=== PATIENT | female | born 1965 | race African-American/Black ===

== ENCOUNTER 2020-02-08 09:00 | Outpatient (CLI) | payer OTHER, SELFPAY ==
--- NOTE | ~2020-02-08 | MM_ITS ---
EXAMINATION: MM screening todd BI w molina HISTORY: Screening mammogram TECHNIQUE: Craniocaudal and mediolateral oblique 3-D tomosynthesis images were obtained and synthetic 2-D images were generated. CAD analysis was submitted and interpreted. COMPARISON: 01/20/2019, 12/28/2017, 09/06/2016 bilateral digital screening mammogram examinations BREAST PARENCHYMAL COMPOSITION: There are scattered areas of fibroglandular density.................. ........ FINDINGS: There is no evidence of suspicious mass, calcification, or architectural distortion to sugg est malignancy in either breast. There has been no suspicious interval change. IMPRESSION: 1. No mammographic evidence of malignancy. 2. Recommend routine screening mammography in one year. BI-RADS Category 1: Negative Reviewed, dictated and finalized at location A.
== END 2020-02-08 09:01 | disposition home or self-care (01) ==
PROVIDERS: PCP Family Medicine; Visit Provider Obstetrics & Gynecology
DX: Z12.31 Encounter for screening mammogram for malignant neoplasm of breast (principal)
CPT/HCPCS: 77063; 77067

== ENCOUNTER 2021-05-10 14:09 | Outpatient (CLI) | payer OTHER, SELFPAY ==
--- NOTE | ~2021-05-10 | DEXA_ITS ---
Bone Density Report Name: Chayito Howard Age: 56 Sex: Female Ethnicity: Black Date of : 1965 Indication: osteopenia; monitoring treatment; height loss; postmenopausal Referring Provider: HUSSAIN, TUAN Study: Bone densitometry was performed. Exam Date: May 10, 2021 Accession number: [id number] Bone Density: Region BMD T-score Z-score Classification AP Spine (L1-L4) 0.816 -2.1 -1.6 Osteopenia Femoral Neck (Left) 0.703 -1.3 -0.8 Osteopenia Total Hip (Left) 0.851 -0.7 -0.5 Normal Total Hip Bilateral Avg 0.850 -0.8 -0.5 Normal Femoral Neck (Right) 0.721 -1.2 -0.7 Osteopenia Total Hip (Right) 0.847 -0.8 -0.5 Normal World Health Organization criteria for BMD impression classify patients as: Normal (T-score at or above -1.0), Osteopenia (T-score between -1.0 and -2.5), or Osteoporosis (T-score at or below -2.5). 10-year Fracture Risk: FRAX not reported because: Treated for osteoporosis Previous Exams: Region Exam Age BMD T-score BMD Change BMD Change Date g/cm2 vs Baseline vs Previous AP Spine(L1-L4) 05/10/2021 56 0.816 -2.1 -0.029(-3.4%)* -0.029(-3.4%)* 10/28/2018 53 0.845 -1.8 Total Hip(Left) 05/10/2021 56 0.851 -0.7 -0.069(-7.5%)* -0.069(-7.5%)* 10/28/2018 53 0.921 -0.2 Total Hip(Right) 05/10/2021 56 0.847 -0.8 -0.058(-6.4%)* -0.058(-6.4%)* 10/28/2018 53 0.905 -0.3 *Denotes significance at 95% confidence level, LSC for AP Spine = 0.022 g/cm2, LSC for Total Hip = 0.027 g/cm2 Clinical Information Provided by Patient: Is being treated for osteoporosis Has used the following medications: Vitamin D, Calcium Patient maximum height was 67 Menopause Age: 50 Does not regularly consume dairy products Onset of menses at age 12 Number of children 1 Impression: The patient has low bone mass, based on the Total Spine T-score. The BMD for the AP Spine(L1-L4) decreased, changing by -3.4% since the last DXA exam. The BMD for the Total Hip(Left) decreased, changing by -7.5% since the last DXA exam. The BMD for the Total Hip(Right) decreased, changing by -6.4% since the last DXA exam. Discussion: SIGNIFICANT BONE LOSS OBSERVED. Adherence to therapy (including calcium and vitamin D intake) should be assessed. If compliance is not a factor, review management and exclusion of secondary causes of bone loss. It is important to ask patients whether they are taking their medications and to encourage continued and appropriate compliance with their osteopo
--- NOTE | ~2021-05-10 | MM_ITS ---
EXAMINATION: MM screening todd BI w molina HISTORY: Screening TECHNIQUE: Craniocaudal and mediolateral oblique 3-D tomosynthesis images were obtained and synthetic 2-D images were generated. CAD analysis was submitted and interpreted. COMPARISON: Comparison to multiple prior studies sequentially, with oldest reviewed study dated 05/05. BREAST PARENCHYMAL COMPOSITION: There are scattered areas of fibroglandular density. FINDINGS: There is no evidence of suspicious mass, calcification, or architectural distortion to sugg est malignancy in either breast. There has been no suspicious interval change. IMPRESSION: 1. No mammographic evidence of malignancy. 2. Recommend routine screening mammography in one year. BI-RADS Category 1: Negative Reviewed, dictated and finalized at location A.
== END 2021-05-10 14:10 | disposition home or self-care (01) ==
PROVIDERS: PCP Family Medicine; Visit Provider Nurse Practitioner
DX: Z12.31 Encounter for screening mammogram for malignant neoplasm of breast (principal); Z78.0 Asymptomatic menopausal state; M85.88 Other specified disorders of bone density and structure, other site; M85.852 Other specified disorders of bone density and structure, left thigh; M85.851 Other specified disorders of bone density and structure, right thigh
CPT/HCPCS: 77063; 77067; 77080

== ENCOUNTER 2022-06-17 08:47 | Outpatient (CLI) | payer OTHER, SELFPAY ==
--- NOTE | ~2022-06-17 | MM_ITS ---
EXAMINATION: MM screening [facility] BI w molina HISTORY: Screening mammogram TECHNIQUE: Craniocaudal and mediolateral oblique 3-D tomosynthesis images were obtained and synthetic 2-D images were generated. CAD analysis was submitted and interpreted. COMPARISON: 05/10/2021, 02/08/2020, 01/20/2019 BREAST PARENCHYMAL COMPOSITION: There are scattered areas of fibroglandular density. FINDINGS: There is no suspicious mass, calcification, or architectural distortion to suggest malignan cy in either breast. There has been no suspicious interval change. IMPRESSION: 1. No mammographic evidence of malignancy. 2. Recommend routine screening mammography in one year. BI-RADS Category 1: Negative Reviewed, dictated and finalized at location A.
== END 2022-06-17 08:48 | disposition home or self-care (01) ==
PROVIDERS: PCP Family Medicine; Visit Provider Nurse Practitioner
DX: Z12.31 Encounter for screening mammogram for malignant neoplasm of breast (principal)
CPT/HCPCS: 77063; 77067

== ENCOUNTER 2023-04-17 08:38 | Outpatient (CLI) | payer OTHER, SELFPAY ==
--- NOTE | ~2023-04-17 | MR_ITS ---
MRI of the brain Clinical History: Migraine headache Technique: Axial and sagittal T1-weighted images were acquired. These were followed by axial T2-weigh daniel, diffusion weighted, gradient, and FLAIR images. Findings: No abnormal signal seen in the brain parenchyma. No acute infarct, internal hemorrhage, or mass lesion. Ventricles and subarachnoid spaces are unremarkable. Orbits are unremarkable. Paranasal sinuses and m astoid air cells are clear. Major intracranial flow voids are intact. Sagittal midline structures are intact. IMPRESSION: Unremarkable exam. Reviewed, dictated and finalized at location M. IMPRESSION: Unremarkable exam.
== END 2023-04-17 08:39 | disposition home or self-care (01) ==
PROVIDERS: PCP Family Medicine; Visit Provider Psychiatry & Neurology Neurology
DX: G43.909 Migraine, unspecified, not intractable, without status migrainosus (principal)
CPT/HCPCS: 70551

== ENCOUNTER → 2023-07-14 10:16 | Outpatient (CLI) | payer OTHER, SELFPAY ==
--- NOTE | ~2023-07-14 | DEXA_ITS ---
Bone Density Report Name: PETRA MONSALVE Age: 58 Sex: Female Ethnicity: Black Date of : 1965 Indication: postmenopausal; screening for osteoporosis; height loss; Referring Provider: BETHANIE HOWARD Study: Bone densitometry was performed. Exam Date: July 14, 2023 Accession number: [id number] Bone Density: Region BMD T-score Z-score Classification AP Spine (L1-L4) 0.767 -2.5 -1.9 Osteoporosis Femoral Neck (Left) 0.672 -1.6 -0.9 Osteopenia Total Hip (Left) 0.828 -0.9 -0.5 Normal Femoral Neck (Right) 0.683 -1.5 -0.8 Osteopenia Total Hip (Right) 0.798 -1.2 -0.7 Osteopenia Total Hip Mean 0.813 -1.1 -0.6 Osteopenia World Health Organization criteria for BMD impression classify patients as: Normal (T-score at or above -1.0), Osteopenia (T-score between -1.0 and -2.5), or Osteoporosis (T-score at or below -2.5). 10-year Fracture Risk: FRAX not reported because: Some T-score for Spine Total or Hip Total or Femoral Neck at or below -2.5 Clinical Information Provided by Patient: Has used the following medications: Vitamin D, Calcium Patient maximum height was 67 Menopause Age: 48 Onset of menses at age 12 Number of children 1 Impression: The patient has osteoporosis, based on the Total Spine T-score. Discussion: INCREASED RISK OF FRACTURE. BONE DENSITY IS UNDESIRABLY LOW AT ONE OR MORE SKELETAL SITES, CONSISTENT WITH POSTMENOPAUSAL OSTEOPOROSIS. This patient's lowest T-score meets the World Health Organization's (WHO) criteria for osteoporosis at one or more sites (T-score -2.5 or below). In untreated patients, the risk of osteoporotic fracture increases approximately two-fold for each 1.0 SD decrease in T-score. Low bone density is not the only risk factor for fracture; also consider factors such as patient's age, frailty or poor health, risk of falling, risk of injury, previous osteoporotic fracture, family history of osteoporosis, cigarette smoking, low body weight, etc. Not everyone with low bone mineral density has osteoporosis; osteomalacia and other metabolic bone disorders should also be considered. Patients who have osteoporosis should be evaluated for specific diseases and conditions (secondary causes) that may cause or contribute to bone loss. The [place] [employer] Endocrinologists (AACE) and National Osteoporosis Foundation (NOF) recommend pharmacologic intervention for all postmenopausal women whose T-score is in this range. The patient should follow a healthful lifestyle (good nutrition with adequate calcium and vitamin D, and appropriate weight-bearing exercise). Follow-Up: Consider a repeat BMD and Vertebral Fracture Assessment (VFA) exam in 2 years or sooner if medically necessary, to reassess this patient's status. Reported by: LAZARA on 07/14/2023 10:32:00 AM. ____
== END ==
PROVIDERS: PCP Family Medicine; Visit Provider Obstetrics & Gynecology Gynecology
DX: M85.88 Other specified disorders of bone density and structure, other site (principal); Z78.0 Asymptomatic menopausal state; M85.852 Other specified disorders of bone density and structure, left thigh; M85.851 Other specified disorders of bone density and structure, right thigh; M81.0 Age-related osteoporosis without current pathological fracture
CPT/HCPCS: 77080

== ENCOUNTER → 2023-08-06 09:57 | Outpatient (CLI) | payer OTHER, SELFPAY ==
--- NOTE | ~2023-08-06 | MM_ITS ---
EXAMINATION: MM screening [facility] BI w molina HISTORY: Screening TECHNIQUE: Craniocaudal and mediolateral oblique 3-D tomosynthesis images were obtained and synthetic 2-D images were generated. CAD analysis was submitted and interpreted. COMPARISON: Comparison to multiple prior studies sequentially, with oldest reviewed study dated 08/19. BREAST PARENCHYMAL COMPOSITION: Breast composed of scattered areas of fibroglandular density FINDINGS: There is no evidence of suspicious mass, calcification, or architectural distortion to sugg est malignancy in either breast. There has been no suspicious interval change. IMPRESSION: 1. No mammographic evidence of malignancy. 2. Recommend routine screening mammography in one year. BI-RADS Category 1: Negative Reviewed, dictated and finalized at location A.
== END ==
PROVIDERS: PCP Obstetrics & Gynecology Gynecology; Visit Provider Obstetrics & Gynecology Gynecology
DX: Z12.31 Encounter for screening mammogram for malignant neoplasm of breast (principal)
CPT/HCPCS: 77063; 77067

== ENCOUNTER 2025-05-02 13:34 | Outpatient (CLI) | payer OTHER, SELFPAY ==
--- NOTE | ~2025-05-02 | MR_ITS ---
EXAMINATION: MR knee LT wo con DATE: 05/02/2025 14:10 INDICATION: Other tear of medial meniscus, current injury TECHNIQUE: Magnetic resonance imaging (MRI) of the left knee was performed without intravenous contra st. Sequences included axial PD-weighted FS FSE, coronal PD-weighted FSE and PD-weighted FS FSE, sagi ttal PD-weighted FSE, and sagittal T2-weighted FS FSE. COMPARISON: X-ray left knee 04/20/2025, images only FINDINGS: Medial compartment: Moderate diffuse cartilage thinning. Mild osteophytosis. Small oblique undersurface tear of the body of medial meniscus. Apical blunting of the anterior horn and posterior horn. Vertical tear of the pos terior horn, extending to the undersurface. Lateral compartment: Mild diffuse cartilage thinning. Mild osteophytosis. Small meniscal cyst noted anteriorly, with irreg ularity along the superior surface of the anterior horn. Patellofemoral compartment: Mild diffuse cartilage thinning with multifocal areas of partial thickness cartilage signal abnormali ty. Retinacula intact. Ligaments and tendons: The ACL, PCL, MCL, and LCL are intact. Remaining flexor and extensor tendons are intact. Abnormal sof t tissue signal surrounding the sartorius, gracilis, and semitendinosus tendons at the level of the j oint line. Fluid: Small volume joint fluid. Osseous/other: No suspicious focal or diffuse marrow signal. Degenerative subcortical cyst in the anterior tibial pl [place]. IMPRESSION: Multiple small tears of the medial meniscus. Likely small anterior horn tear of the lateral meniscus, with a meniscal cyst. Tricompartmental osteoarthritis. Small joint effusion. Abnormal signal adjacent to the sartorius, gracilis, semitendinosus tendons at the level of the joint line, likely representing mild inflammation. No definite tenosynovitis or tendon tear. Reviewed, dictated and finalized at location K.
== END 2025-05-02 13:35 | disposition home or self-care (01) ==
PROVIDERS: PCP Orthopaedic Surgery; Visit Provider Orthopaedic Surgery
DX: S83.242A Other tear of medial meniscus, current injury, left knee, initial encounter (principal); M17.12 Unilateral primary osteoarthritis, left knee; M25.462 Effusion, left knee; M23.042 Cystic meniscus, anterior horn of lateral meniscus, left knee; X58.XXXA Exposure to other specified factors, initial encounter
CPT/HCPCS: 73721

== ENCOUNTER 2025-09-01 14:30 | Outpatient (CLI) | payer OTHER, SELFPAY ==
--- NOTE | ~2025-09-01 | DEXA_ITS ---
Bone Density Report Name: PETRA MONSALVE Age: 60 Sex: Female Ethnicity: Black Date of : 1965 Indication: postmenopausal osteoporosis; height loss; Referring Provider: ORLIN, KELLI Study: Bone densitometry was performed. Exam Date: September 01, 2025 Accession number: [id number] Bone Density: Region BMD T-score Z-score Classification AP Spine(L1-L4) 0.763 -2.6 -1.8 Osteoporosis Femoral Neck (Left) 0.661 -1.7 -0.9 Osteopenia Total Hip (Left) 0.786 -1.3 -0.7 Osteopenia Femoral Neck (Right) 0.682 -1.5 -0.7 Osteopenia Total Hip (Right) 0.773 -1.4 -0.8 Osteopenia Total Hip Mean 0.780 -1.4 -0.8 Osteopenia World Health Organization criteria for BMD impression classify patients as: Normal (T-score at or above -1.0), Osteopenia (T-score between -1.0 and -2.5), or Osteoporosis (T-score at or below -2.5). 10-year Fracture Risk: FRAX not reported because: Some T-score for Spine Total or Hip Total or Femoral Neck at or below -2.5 Previous Exams: -- Region Exam Age BMD T-score BMD Change BMD Change Date g/cm2 vs Baseline vs Previous -- AP Spine (L1-L4) 09/01/2025 60 0.763 -2.6 -0.5%# -0.5%# 07/14/2023 58 0.767 -2.5 Total Hip(Left) 09/01/2025 60 0.786 -1.3 -5.1%* -5.1%* 07/14/2023 58 0.828 -0.9 Total Hip(Right) 09/01/2025 60 0.773 -1.4 -3.1% -3.1% 07/14/2023 58 0.798 -1.2 -- *Denotes significance at 95% confidence level, LSC for AP Spine = 0.022 g/cm2, LSC for Total Hip = 0.027 g/cm2 # Denotes dissimilar scan types or analysis methods Clinical Information Provided by Patient: Has used the following medications: Vitamin D, Calcium Patient maximum height was 68 Menopause Age: 48 Onset of menses at age 12 Number of children 1 Missed period for more than 6 months in a row Impression: The patient has osteoporosis, based on the Total Spine T-score. The BMD for the Total Hip(Left) decreased, changing by -5.1% since the last DXA exam. Discussion: INCREASED RISK OF FRACTURE. BONE DENSITY IS UNDESIRABLY LOW AT ONE OR MORE SKELETAL SITES, CONSISTENT WITH POSTMENOPAUSAL OSTEOPOROSIS. This patient's lowest T-score meets the World Health Organization's (WHO) criteria for osteoporosis at one or more sites (T-score -2.5 or below). In untreated patients, the risk of osteoporotic fracture increases approximately two-fold for each 1.0 SD decrease in T-score. Low bone density is not the only risk factor for fracture; also consider factors such as patient's age, frailty or poor health, risk of falling, risk of injury, previous osteoporotic fracture, family history of osteoporosis, cigarette smoking, low body weight, etc. Not everyone with low bone mineral density has osteoporosis; osteomalacia and other metabolic bone disorders should also be considered. Patients who have osteoporosis should be evaluated for specific diseases and conditions (secondary causes) that may cause or contribute to bone loss. The [place] [employer]ocrinologists (AACE) and National Osteoporosis Foundation (NOF) recommend pharmacologic intervention for all postmenopausal women whose T-score is in this range. The patient should follow a healthful lifestyle (good nutrition with adequate calcium and vitamin D, and appropriate weight-bearing exercise). Follow-Up: Consider a repeat BMD and Vertebral Fracture Assessment (VFA) exam in 2 years or sooner if medically necessary, to reassess this patient's status. Reported by: RUBIA on 09/01/2025 2:49:00 PM. Reviewed, dictated and finalized at location A.
--- NOTE | ~2025-09-01 | MM_ITS ---
EXAMINATION: MM screening todd BI w molina HISTORY: Screening TECHNIQUE: Craniocaudal and mediolateral oblique 3-D tomosynthesis images were obtained and synthetic 2-D images were generated. CAD analysis was submitted and interpreted. COMPARISON: Comparison to multiple prior studies sequentially, with oldest reviewed study dated 01/20/2019. BREAST PARENCHYMAL COMPOSITION: Not dense: There are scattered areas of fibroglandular density. FINDINGS: There is no evidence of suspicious mass, calcification, or architectural distortion to suggest malignancy in either breast. There has been no suspicious interval change. IMPRESSION: 1. No mammographic evidence of malignancy. 2. Recommend routine screening mammography in one year. BI-RADS Category 1: Negative Reviewed, dictated and finalized at location B. [employer]
== END 2025-09-01 14:31 | disposition home or self-care (01) ==
LOC: MICIMG 14:32
PROVIDERS: PCP Family Medicine
DX: Z12.31 Encounter for screening mammogram for malignant neoplasm of breast (principal); Z78.0 Asymptomatic menopausal state; M81.0 Age-related osteoporosis without current pathological fracture; M85.852 Other specified disorders of bone density and structure, left thigh; M85.851 Other specified disorders of bone density and structure, right thigh
CPT/HCPCS: 77063; 77067; 77080